=== PATIENT | male | born 1950 | race Two or more races ===

== ENCOUNTER → 2019-07-13 | Outpatient (CLI) | payer OTHER | END | disposition home or self-care (01) | LOC: NUCLEAR 13:23 | DX: M81.0 Age-related osteoporosis without current pathological fracture (principal) ==

== ENCOUNTER 2020-06-20 09:19 | Outpatient (CLI) | payer OTHER | END 2020-06-20 09:25 | disposition home or self-care (01) | LOC: RAD 09:19 | PROVIDERS: ATTEND Orthopaedic Surgery | DX: M25.561 Pain in right knee (principal); M25.562 Pain in left knee ==

== ENCOUNTER 2021-11-12 08:11 | Outpatient (CLI) | payer OTHER | END 2021-11-12 08:21 | disposition home or self-care (01) | LOC: RAD 08:11 | PROVIDERS: ATTEND Orthopaedic Surgery | DX: M25.561 Pain in right knee (principal); M25.562 Pain in left knee ==

== ENCOUNTER 2024-05-17 09:36 | Outpatient (CLI) | payer OTHER | END 2024-05-17 09:45 | disposition home or self-care (01) | LOC: RAD 09:36 | PROVIDERS: ATTEND Orthopaedic Surgery | DX: M19.012 Primary osteoarthritis, left shoulder (principal) ==

== ENCOUNTER 2024-05-23 08:29 | Outpatient (CLI) | payer OTHER ==
[2024-05-25] MEDS ORDERED: COZAAR100 MG PO (13:22)
[2024-05-25] MEDS ORDERED: ATORVASTATIN CA40 MG PO (13:22)
[2024-05-25] MEDS ORDERED: ZETIA10 MG PO (13:23)
== END 2024-05-23 08:39 | disposition home or self-care (01) ==
LOC: RAD 08:29
PROVIDERS: ATTEND Orthopaedic Surgery
DX: Z76.89 Persons encountering health services in other specified circumstances (principal); M25.511 Pain in right shoulder; M25.112 Fistula, left shoulder

== ENCOUNTER 2024-05-23 09:11 | Outpatient (CLI) | payer OTHER ==
[2024-05-23 10:08] LABS: HEMATOCRIT 41.1 % (39.0-48.0); HEMOGLOBIN 13.9 g/dL (13-16.00); MEAN CORPUSCULAR HEMOGLOBIN 31.5 pg (27.00-32.0); MEAN CORPUSCULAR HGB CONC 33.8 g/dl (32.0-36.0); PLATELET COUNT 137 K/uL (150-450); RED BLOOD COUNT 4.42 M/uL (4.00-6.00); RED CELL DISTRIBUTION WIDTH 13.5 % (11.5-14.5)
[2024-05-23 10:26] LABS: PH,URINE 5.5 (5.0-8.0); URINE APPEARANCE Clear; URINE BILIRRUBIN Negative (NEGATIVE); URINE BLOOD Negative; URINE COLOR Yellow; URINE GLUCOSE Negative (NEGATIVE); URINE KETONE Trace (NEGATIVE); URINE LEUKOCYTE Negative; URINE NITRATE Negative; URINE PROTEIN Negative (NEGATIVE); URINE UROBILINOGEN 0.2 E.U./dl
[2024-05-23 10:30] LABS: URINE BACTERIA 8.8 uL (0.0-1933); URINE EPITHELIAL CELLS 4.9 uL (0.0-38.8); URINE RBC 13.7 uL (0.0-20.8)
[2024-05-23 10:35] LABS: INR 1.04; PARTIAL THROMBOPLASTIN TIME 29.5 SECONDS (22.0-34.0)
[2024-05-23 10:36] LABS: PROTHROMBIN TIME 11.3 SECONDS (9.0-11.5)
[2024-05-23 10:40] LABS: COL EPI 122 SECONDS (82-175)
[2024-05-23 10:42] LABS: URINE CAST 0.15 uL (0.0-1.40)
[2024-05-23 11:50] LABS: ALBUMIN 4.2 gm/dL (3.4-5.0); BILIRUBIN TOTAL 0.97 mg/dL (0.3-1.2); CALCIUM 9.3 mg/dL (8.5-10.1); CREATININE SERUM 0.79 mg/dL (0.70-1.30); GFR 96.41; GLOBULINA 3.4 G/DL (2.4-3.5); POTASSIUM 4.11 mEq/L (3.5-5.1); TOTAL PROTEIN 7.6 gm/dL (6.4-8.2)
[2024-05-25] MEDS ORDERED: ATORVASTATIN CA40 MG PO (13:22)
[2024-05-25] MEDS ORDERED: COZAAR100 MG PO (13:22)
[2024-05-25] MEDS ORDERED: ZETIA10 MG PO (13:23)
== END 2024-05-23 09:19 | disposition home or self-care (01) ==
LOC: LAB 09:11
PROVIDERS: ATTEND Orthopaedic Surgery
DX: D64.9 Anemia, unspecified (principal); E88.89 Other specified metabolic disorders; D68.8 Other specified coagulation defects; N39.0 Urinary tract infection, site not specified; Z22.322 Carrier or suspected carrier of Methicillin resistant Staphylococcus aureus; I10 Essential (primary) hypertension

== ENCOUNTER 2024-05-30 05:18 | Day surgery (SDC) | payer OTHER ==
[~2024-05-30 05:18] MED LIST: ATORVASTATIN CA40 MG PO; COZAAR100 MG PO; ZETIA10 MG PO
[2024-05-30] MEDS ORDERED: CEFAZOLIN SODIUM 1,000 MG VIAL ONE (07:41)
[2024-05-30] MEDS ORDERED: BUPIVACAINE HCL/MPF 0.5% 30ML VIAL ONE (07:41)
[2024-05-30] MEDS ORDERED: EPINEPHRINE HCL/PF 1 MG/ML AMPUL ONE (07:42)
[2024-05-30] MEDS ORDERED: CEFTRIAXONE SODIUM 1,000 MG VIAL IV ONE (11:00)
[2024-05-30] MEDS ORDERED: CEFTRIAXONE SODIUM 1,000 MG VIAL ONE (12:16)
== END 2024-05-30 13:10 | disposition home or self-care (01) ==
LOC: CIR.AMB 05:18
PROVIDERS: ATTEND Orthopaedic Surgery
DX: M75.122 Complete rotator cuff tear or rupture of left shoulder, not specified as traumatic (principal); M75.22 Bicipital tendinitis, left shoulder; M25.312 Other instability, left shoulder; M75.42 Impingement syndrome of left shoulder; M19.012 Primary osteoarthritis, left shoulder; I10 Essential (primary) hypertension; N40.1 Benign prostatic hyperplasia with lower urinary tract symptoms